=== PATIENT | male | born 1975 | race Two or more races ===

== ENCOUNTER 2023-08-23 04:10 | Day surgery (SDC) | payer BC ==
[2023-08-21 08:59] VITALS: BMI 27.3
[~2023-08-23 04:10] MED LIST: DEXAMETHASONE SOD PHOSPHATE 10 MG/1 ML VIAL IM ONE; IOHEXOL 180 MG/1 ML ML IJ ONE; LIDOCAINE HCL 1% PRESERVATIVE FREE - 30ML VIAL IJ ONE
[2023-08-23 10:35] VITALS: TEMP 97.7
[2023-08-23] MEDS ORDERED: DEXAMETHASONE SOD PHOSPHATE 10 MG/1 ML VIAL IM ONE (13:27)
[2023-08-23] MEDS ORDERED: IOHEXOL 180 MG/1 ML ML IJ ONE (13:28)
[2023-08-23] MEDS ORDERED: LIDOCAINE HCL 1% PRESERVATIVE FREE - 30ML VIAL IJ ONE (13:28)
[2023-08-23 13:56] VITALS: BP 114/54; PULSE 54; RESP 17
[2023-08-23] MEDS ORDERED: ACETAMINOPHEN 500 MG TABLET (FP) PO PRN (15:06)
== END 2023-08-23 14:37 | disposition home or self-care (01) ==
LOC: JASU-SURG 04:10
PROVIDERS: ATTEND Pain Medicine Pain Medicine
PROC: 3E0R3BZ Introduction of Anesthetic Agent into Spinal Canal, Percutaneous Approach (ICD-10-PCS; 2023-08-23)
PROC: 3E0R33Z Introduction of Anti-inflammatory into Spinal Canal, Percutaneous Approach (ICD-10-PCS; principal; 2023-08-23 12:30)
DX: M54.16 Radiculopathy, lumbar region (principal)
CPT/HCPCS: 76000-TC-FY; J1100